=== PATIENT | female | born 1990 | race Caucasian/White ===

== ENCOUNTER 2021-02-08 11:31 | Outpatient (CLI) | payer BC, SELFPAY ==
--- NOTE | ~2021-02-08 | NM_ITS ---
EXAMINATION: NM hepatobiliary wo pharm EXAM DATE: 02/08/2021 14:26 INDICATION: Right upper quadrant pain, nausea vomiting and weight loss. TECHNIQUE: 4 mCi Tc-99m mebrofenin (Choletec) was administered intravenously. Scintigraphic images o f the abdomen were obtained for one hour. To obtained gallbladder ejection fraction, patient drank 8 ounces of Ensure and imaging of the gallbladder obtained for one hour following ingestion. Gallblad jeannie ejection fraction was calculated by the technologist. There is no prior study for comparison. FINDINGS: There is normal clearance of radiotracer from the blood pool. There is homogeneous tracer u ptake by the liver. Activity progresses to the gallbladder and bowel. The gallbladder ejection fract ion (GBEF) is 61% (most patients with gallbladder dysfunction have GBEF < 35%, but there is slight ov erlap with the normal range of 33-90% using this protocol).] IMPRESSION: Gallbladder ejection fraction 61%, within normal range. Reviewed, dictated and finalized at location G.
== END 2021-02-08 11:32 | disposition home or self-care (01) ==
LOC: ANHIMG 11:39
PROVIDERS: Visit Provider Internal Medicine Gastroenterology
DX: R10.11 Right upper quadrant pain (principal); R11.2 Nausea with vomiting, unspecified; R63.4 Abnormal weight loss
CPT/HCPCS: 78226; A9537